=== PATIENT | female | born 1975 | race Asian ===

== ENCOUNTER 2016-09-05 23:28 | Emergency (ER) | payer SELFPAY ==
[~2016-09-05] VITALS: Wt 78.0 kg
[2016-09-06] MEDS ORDERED: DIPHENHYDRAMINE 50 MG CAP PO ONE (01:00)
[2016-09-06] MEDS ORDERED: predniSONE 20 MG TAB PO ONE (01:00)
[2016-09-06] MEDS ORDERED: PRED20TA PO (01:56)
[2016-09-06] MEDS ORDERED: BEN25 PO (01:56)
[2016-09-06] MEDS ORDERED: HC1C30 TOP (01:56)
[2016-09-06 02:07] VITALS: BP 123/88; PULSE 102; RESP 18; TEMP 97.9
--- NOTE | 2016-09-06 02:46 | ERD ---
ER Documentation Chief Complaint Date/Time DATE: 09/06/16 TIME: 02:40 Chief Complaint ITCHING ALL OVER BODY S/P BIOPSY OF HER R BREAST HPI This is a 41-year-old female presents to the ER for generalized body itching that started today. Patient states she went into her doctor's office for biopsy of her right breast and was given a dose of lidocaine. Soon after she developed generalized body itching that has gotten worse. Patient unsure if she was given any other medications during procedure. Denies shortness of breath, difficulty breathing or wheezing. Denies difficulty swallowing. Patient is talking in complete sentences. Unsure of any allergies. Patient denies any new soaps, detergents or foods. Patient has not taken any medications for this. ROS All systems reviewed and are negative except as per history of present illness. Medications Home Meds Active Scripts Diphenhydramine Hcl* (Benadryl*) 25 Mg Cap, 25 MG PO Q6, #10 CAP Prov:CLEOPATRA UREÑA NP 09/06/16 Hydrocortisone* Topical (Hydrocortisone* Topical) 1%-28.35 Gm Cream..g., 1 APPLIC TOP Q6 Y for ITCHING, #1 TUB Prov:CLEOPATRA UREÑA NP 09/06/16 Prednisone* (Prednisone*) 20 Mg Tab, 40 MG PO DAILY for 4 Days, TAB Prov:CLEOPATRA UREÑA NP 09/06/16 Allergies Allergies: Coded Allergies: No Known Allergy (Unverified , 09/06/16) PMhx/Soc Medical and Surgical Hx: pt denies Surgical Hx Hx Cardiac Disorders: Yes (HTN ) Hx Alcohol Use: No Hx Substance Use: No Hx Tobacco Use: No Smoking Status: Never smoker Physical Exam Vitals Vital Signs Date Time Temp Pulse Resp B/P Pulse Ox O2 Delivery O2 Flow Rate FiO2 09/06/16 02:07 97.9 102 18 123/88 97 09/05/16 23:34 99.0 100 20 139/77 99 Physical Exam Const: Alert, seen itching profusely while in ED Head: Atraumatic Eyes: Normal Conjunctiva ENT: Normal External Ears, Nose and Mouth. Neck: Full range of motion..~ No meningismus. Resp: Clear to auscultation bilaterally Cardio: Regular rate and rhythm, no murmurs Abd: Soft, non tender, non distended. Normal bowel sounds Skin: Generalized wheals with erythematous border of varying sizes to bilateral upper extremities, bilateral lower extremities, back and abdomen. No mouth sores or ulcers. No vesicular lesions. No weeping or drainage of lesions. Back: No midline or flank tenderness Ext: No cyanosis, or edema Neur: Awake and alert Psych: Normal Mood and Affect Results 24 hrs Current Medications Medications (Trade) Dose Ordered Sig/Phil Route PRN Reason Start Time Stop Time Status Last Admin Dose Admin Diphenhydramine HCl (Benadryl) 50 mg ONCE ONCE PO 09/06/16 01:00 09/06/16 01:01 DC 09/06/16 01:07 Prednisone (Prednisone) 40 mg ONCE ONCE PO 09/06/16 01:00 09/06/16 01:01 DC 09/06/16 01:07 Procedures/MDM ED COURSE: The patient was stable throughout ED course. I kept the patient and/or family informed of laboratory and diagnostic imaging results throughout the ED course. Patient given prednisone and Benadryl. MDM: 41-year-old female presents to emergency department for generalized body itching after lidocaine administration. Patient states itching developed approximately 1 hour after lidocaine was administered for breast biopsy. Patient given prednisone and Benadryl while in the ED and patient states itching has significantly improved. Vital signs remained stable. No fevers or chills. No signs or symptoms of respiratory distress. Lung exam is unremarkable. ENT exam is unremarkable. Exam consistent with allergic dermatitis. Differential diagnosis includes but not limited to allergic dermatitis, anaphylaxis, contact dermatitis, scabies, cellulitis, and bacterial infection. Low suspicion for scabies, cellulitis or bacterial infection. Patient likely has allergic dermatitis. Patient is appropriate for outpatient management will be given prescription for Benadryl, prednisone and hydrocortisone cream. Instructed patient to follow-up with primary care provider in the next 2-3 days for reassessment. Return to ED for any high fever, chest pain, difficulty breathing, shortness breath, wheezing , vomiting, diarrhea, abdominal pain or any new or worsening symptoms. Patient verbalizes understanding. All questions answered at discharge. Departure Diagnosis: Primary Impression: Allergic reaction Encounter type: initial encounter Qualified Code: T78.40XA - Allergic reaction, initial encounter Condition: Stable Patient Instructions: Allergic Reaction, Drug Referrals: COMM[facility]ITY CL[facility] YOU HAVE RECEIVED A MEDICAL SCREENING EXAM AND THE RESULTS INDICATE THAT YOU DO NOT HAVE A CONDITION THAT REQUIRES URGENT TREATMENT IN THE EMERGENCY DEPARTMENT. FURTHER EVALUATION AND TREATMENT OF YOUR CONDITION CAN WAIT UNTIL YOU ARE SEEN IN YOUR DOCTORS OFFICE WITHIN THE NEXT 1-2 DAYS. IT IS YOUR RESPONSIBILITY TO MAKE AN APPOINTMENT FOR FOLOW-UP CARE. IF YOU HAVE A PRIMARY DOCTOR --you should call your primary doctor and schedule an appointment IF YOU DO NOT HAVE A PRIMARY DOCTOR YOU CAN CALL OUR PHYSICIAN REFERRAL HOTLINE AT IF YOU CAN NOT AFFORD TO SEE A PHYSICIAN YOU CAN CHOSE FROM THE FOLLOWING [facility] [address] [facility] [address] [facility] [address] [facility] [address] [facility] [facility] [address] [facility] [facility] [address] [facility]. [facility] YOU HAVE RECEIVED A MEDICAL SCREENING EXAM AND THE RESULTS INDICATE THAT YOU DO NOT HAVE A CONDITION THAT REQUIRES URGENT TREATMENT IN THE EMERGENCY DEPARTMENT. FURTHER EVALUATION AND TREATMENT OF YOUR CONDITION CAN WAIT UNTIL YOU ARE SEEN IN YOUR DOCTORS OFFICE WITHIN THE NEXT 1-2 DAYS. IT IS YOUR RESPONSIBILITY TO MAKE AN APPOINTMENT FOR FOLOW-UP CARE. IF YOU HAVE A PRIMARY DOCTOR --you should call your primary doctor and schedule and appointment IF YOU DO NOT HAVE A PRIMARY DOCTOR YOU CAN CALL OUR PHYSICIAN REFERRAL HOTLINE AT . IF YOU CAN NOT AFFORD TO SEE A PHYSICIAN YOU CAN CHOSE FROM THE FOLLOWING [facility] INSTITUTIONS: [facility] [address] [place] [address] [facility] [address] [place] [address] [facility] [address] [place] [address] Additional Instructions: Call your primary care doctor TOMORROW for an appointment during the next 2-3 days.See the doctor sooner or return here if your condition worsens before your appointment time. Return to ED for any high fever, chest pain, difficulty breathing, shortness breath, wheezing, vomiting, diarrhea, abdominal pain or any new or worsening symptoms. CLEOPATRA UREÑA NP Sep 06, 2016 02:46
== END 2016-09-06 02:10 | disposition home or self-care (01) ==
LOC: FTE 23:28
DX: L29.9 Pruritus, unspecified (principal); I10 Essential (primary) hypertension; T41.3X5A Adverse effect of local anesthetics, initial encounter
CPT/HCPCS: 99283; J7512